=== PATIENT | female | born 1945 | race Caucasian/White ===

== ENCOUNTER 2020-08-29 16:34 | Inpatient (IN) ==
[2020-08-29 17:56] LABS: ABS Eosinophils 0.3 10^3/ul (0-0.6); ABS Lymphocytes 1.3 10^3/ul (1.0-4.8); ABS Monocytes 0.7 10^3/ul (0-0.8); ABS Neutrophils 7.2 10^3/ul (1.5-7.7); Eosinophil % 3.7 %; Hematocrit 38 % (35-47); Lymphocyte % 13.7 %; Mean Corpuscular HGB Conc 34 g/dL (31-36); Mean Corpuscular Hemoglobin 31 pg (27-31); Mean Corpuscular Volume 93 fL (80-97); Platelet Count 283 10^3/uL (150-450); Red Blood Count 4.14 10^6 /uL (3.70-4.87); Red Cell Distribution Width 13 % (10-15); White Blood Count 9.5 10^3/uL (3.5-10.8)
[2020-08-29 18:03] LABS: INR 0.98 (0.82-1.09)
[2020-08-29] MEDS ORDERED: Al Hydrox/Mg Hydrox/Simet LIQ 30 ML UDC PO PRN (18:07)
[2020-08-29 18:11] LABS: Albumin 4.7 g/dL (3.2-5.2); Albumin/Globulin Ratio 1.9 (1-3); BUN/Creatinine Ratio 30.1 (8-20); Calcium 9.8 mg/dL (8.6-10.3); EGFR African American 71.3 (>60); EGFR Non-African American 58.9 (>60); Globulin 2.5 g/dL (2-4); Potassium 3.8 mmol/L (3.5-5.0); Total Bilirubin 0.4 mg/dL (0.2-1.0); Total Protein 7.2 g/dL (6.4-8.9)
[2020-08-29] MEDS: Heparin 5000 UNITS/ML 1 mL VIAL SUBCUT SCH (22:06)
[2020-08-29] MEDS ORDERED: Lactated Ringers 1000 ml BAG 1,000 ML IV SCH (23:45)
[2020-08-30] MEDS ORDERED: Morphine 2 MG/ML SYRINGE IV ONE (02:51)
[2020-08-30] MEDS ORDERED: fentaNYL 100 mcg/2 ml 50 MCG/ML VIAL IV SLOW PU ONE (04:24)
[2020-08-30] MEDS: Heparin 5000 UNITS/ML 1 mL VIAL SUBCUT SCH ×3 (06:08→21:29)
[2020-08-30] MEDS: Cholecalciferol (VIT D3) 400 units TAB PO SCH (08:15)
[2020-08-30] MEDS ORDERED: Aspirin EC 325 mg TAB.EC PO SCH (09:00)
[2020-08-30 13:14] LABS: Vitamin D Total 25(OH) 29.8 ng/mL (20-50)
[2020-08-30] MEDS: Senna TAB 8.6 mg TAB PO SCH (21:30)
[2020-08-31] MEDS: NS 0.9% 1000 ml BAG 1,000 ML IV SCH ×2 (01:25→15:02)
[2020-08-31] MEDS: Heparin 5000 UNITS/ML 1 mL VIAL SUBCUT SCH ×2 (05:19→15:16)
[2020-08-31 08:36] LABS: ABS Eosinophils 0.3 10^3/ul (0-0.6); ABS Lymphocytes 1.7 10^3/ul (1.0-4.8); ABS Monocytes 0.7 10^3/ul (0-0.8); ABS Neutrophils 6.8 10^3/ul (1.5-7.7); Eosinophil % 2.7 %; Hematocrit 34 % (35-47); Hemoglobin 11.5 g/dL (12.0-16.0); Lymphocyte % 17.9 %; Mean Corpuscular HGB Conc 34 g/dL (31-36); Mean Corpuscular Hemoglobin 32 pg (27-31); Mean Corpuscular Volume 93 fL (80-97); Platelet Count 217 10^3/uL (150-450); Red Cell Distribution Width 13 % (10-15); White Blood Count 9.5 10^3/uL (3.5-10.8)
[2020-08-31 08:40] LABS: INR 1.1 (0.82-1.09)
[2020-08-31 08:51] LABS: Albumin 3.7 g/dL (3.2-5.2); Albumin/Globulin Ratio 1.4 (1-3); BUN/Creatinine Ratio 21.8 (8-20); Calcium 8.4 mg/dL (8.6-10.3); EGFR African American 87.4 (>60); EGFR Non-African American 72.2 (>60); Globulin 2.6 g/dL (2-4); Potassium 3.6 mmol/L (3.5-5.0); Total Bilirubin 0.6 mg/dL (0.2-1.0); Total Protein 6.3 g/dL (6.4-8.9)
[2020-08-31] MEDS: Cholecalciferol (VIT D3) 400 units TAB PO SCH (09:11)
[2020-08-31] MEDS ORDERED: Vancomycin 1,000 MG VIAL ONE (10:10)
[2020-08-31] MEDS ORDERED: Bupivacaine 0.5% SDV PF 30ML VIAL ONE ×3 (10:11→10:33)
[2020-08-31] MEDS ORDERED: Lidocaine 1% w EPI 1:200,000 SDV 30 ML VIAL ONE (10:11)
[2020-08-31] MEDS ORDERED: Midazolam 5 mg/5 ml VIAL 1 mg/ml 5 ml VIAL (5 mg) ONE (10:32)
[2020-08-31] MEDS ORDERED: fentaNYL 100 mcg/2 ml 50 MCG/ML VIAL ONE (10:32)
[2020-08-31] MEDS ORDERED: Propofol 10 MG/ML 20 ML BTL ONE (10:32)
[2020-08-31] MEDS ORDERED: ceFAZolin 2 GM PREMIX 2 GM/50 ML BAG ONE (10:33)
[2020-08-31] MEDS ORDERED: Sterile Water for Inj 10 ML ONE (10:40)
[2020-08-31] MEDS ORDERED: Ketamine HCL 50 mg/ml 10 ml VIAL (500 MG) ONE (10:40)
[2020-08-31] MEDS ORDERED: Ondansetron 4 mg VIAL 2 MG/ML 2 ml VIAL IV PRN (12:43)
[2020-08-31] MEDS ORDERED: fentaNYL 100 mcg/2 ml 50 MCG/ML VIAL IV PRN (12:43)
[2020-08-31] MEDS ORDERED: HYDROmorphone 1 MG/1 ML SYRINGE IV PRN (12:43)
[2020-08-31] MEDS ORDERED: Naloxone 0.4 mg VIAL 0.4 mg/ml 1 ml VIAL IV PRN (12:43)
[2020-08-31] MEDS ORDERED: Acetaminophen IV 1 GM/100ML 1,000 MG/100 ML VIAL IVPB PRN (12:43)
[2020-08-31] MEDS ORDERED: Polyethylene Glycol 3350 17 GM PACKET PO PRN (13:47)
[2020-08-31] MEDS ORDERED: Magnesium Hydroxide LIQ 30 ML UDC PO PRN (13:47)
[2020-08-31] MEDS ORDERED: Senna TAB 8.6 mg TAB PO PRN (13:47)
[2020-08-31 19:03] LABS: Hematocrit 30 % (35-47); Hemoglobin 10.3 g/dL (12.0-16.0)
[2020-08-31] MEDS: ceFAZolin 1 GM X 3 DOSES POST-OP Q8H (AddVan) IVPB SCH (19:16)
[2020-08-31] MEDS: Morphine 2 MG/ML SYRINGE IV PRN (20:57)
[2020-08-31] MEDS: Senna TAB 8.6 mg TAB PO SCH (20:59)
[2020-08-31] MEDS: Magnesium Hydroxide LIQ 30 ML UDC PO SCH (21:01)
[2020-09-01] MEDS: Morphine 2 MG/ML SYRINGE IV PRN (02:57)
[2020-09-01] MEDS: ceFAZolin 1 GM X 3 DOSES POST-OP Q8H (AddVan) IVPB SCH ×2 (02:57→12:16)
[2020-09-01] MEDS: NS 0.9% 1000 ml BAG 1,000 ML IV SCH ×2 (05:06→19:30)
[2020-09-01 05:49] LABS: Hematocrit 28 % (35-47); Hemoglobin 9.6 g/dL (12.0-16.0); Mean Platelet Volume 10.4 fL (7.4-10.4); Platelet Count 183 10^3/uL (150-450)
[2020-09-01 06:02] LABS: BUN/Creatinine Ratio 28.8 (8-20); EGFR African American 94.3 (>60); EGFR Non-African American 77.9 (>60); Potassium 3.7 mmol/L (3.5-5.0)
[2020-09-01] MEDS: Cholecalciferol (VIT D3) 400 units TAB PO SCH (09:01)
[2020-09-01] MEDS: Enoxaparin 40 MG/0.4 ML SYR SUBCUT SCH (09:03)
[2020-09-01] MEDS: Magnesium Hydroxide LIQ 30 ML UDC PO SCH ×2 (09:04→22:02)
[2020-09-01] MEDS: Senna TAB 8.6 mg TAB PO SCH (22:02)
[2020-09-02 05:15] LABS: Hematocrit 25 % (35-47); Hemoglobin 8.7 g/dL (12.0-16.0); Mean Platelet Volume 10.6 fL (7.4-10.4); Platelet Count 170 10^3/uL (150-450)
[2020-09-02 05:33] LABS: Calcium 8.3 mg/dL (8.6-10.3); EGFR African American 91.4 (>60); EGFR Non-African American 75.5 (>60); Potassium 3.9 mmol/L (3.5-5.0)
[2020-09-02] MEDS: Enoxaparin 40 MG/0.4 ML SYR SUBCUT SCH (08:50)
[2020-09-02] MEDS: Cholecalciferol (VIT D3) 400 units TAB PO SCH (08:51)
[2020-09-02] MEDS: Magnesium Hydroxide LIQ 30 ML UDC PO SCH ×2 (08:51→21:01)
[2020-09-02] MEDS: Senna TAB 8.6 mg TAB PO SCH (21:01)
[2020-09-03 05:56] LABS: ABS Eosinophils 0.3 10^3/ul (0-0.6); ABS Lymphocytes 1.2 10^3/ul (1.0-4.8); ABS Monocytes 0.9 10^3/ul (0-0.8); ABS Neutrophils 6.1 10^3/ul (1.5-7.7); Eosinophil % 3.7 %; Hematocrit 23 % (35-47); Hemoglobin 8.2 g/dL (12.0-16.0); Lymphocyte % 14.3 %; Mean Corpuscular HGB Conc 35 g/dL (31-36); Mean Corpuscular Hemoglobin 32 pg (27-31); Mean Corpuscular Volume 91 fL (80-97); Mean Platelet Volume 9.8 fL (7.4-10.4); Platelet Count 183 10^3/uL (150-450); Red Blood Count 2.56 10^6 /uL (3.70-4.87); Red Cell Distribution Width 13 % (10-15); White Blood Count 8.6 10^3/uL (3.5-10.8)
[2020-09-03 06:26] LABS: BUN/Creatinine Ratio 31.1 (8-20); EGFR Non-African American 95.9 (>60); Potassium 3.9 mmol/L (3.5-5.0)
[2020-09-03] MEDS: Cholecalciferol (VIT D3) 400 units TAB PO SCH (08:50)
[2020-09-03] MEDS: Magnesium Hydroxide LIQ 30 ML UDC PO SCH ×2 (08:51→21:39)
[2020-09-03] MEDS: Enoxaparin 40 MG/0.4 ML SYR SUBCUT SCH (08:52)
[2020-09-03] MEDS: Senna TAB 8.6 mg TAB PO SCH (21:39)
[2020-09-04 05:58] LABS: ABS Eosinophils 0.4 10^3/ul (0-0.6); ABS Lymphocytes 1.3 10^3/ul (1.0-4.8); ABS Monocytes 0.7 10^3/ul (0-0.8); ABS Neutrophils 4.7 10^3/ul (1.5-7.7); Eosinophil % 5.1 %; Hematocrit 24 % (35-47); Hemoglobin 8.2 g/dL (12.0-16.0); Lymphocyte % 17.9 %; Mean Corpuscular HGB Conc 35 g/dL (31-36); Mean Corpuscular Hemoglobin 32 pg (27-31); Mean Corpuscular Volume 91 fL (80-97); Mean Platelet Volume 10.4 fL (7.4-10.4); Platelet Count 223 10^3/uL (150-450); Red Blood Count 2.58 10^6 /uL (3.70-4.87); Red Cell Distribution Width 13 % (10-15); White Blood Count 7.2 10^3/uL (3.5-10.8)
[2020-09-04 06:15] LABS: Calcium 8.2 mg/dL (8.6-10.3); EGFR African American 111.8 (>60); EGFR Non-African American 92.4 (>60)
[2020-09-04 07:32] VITALS: BP 134/63
[2020-09-04] MEDS: Magnesium Hydroxide LIQ 30 ML UDC PO SCH (08:14)
[2020-09-04] MEDS: Enoxaparin 40 MG/0.4 ML SYR SUBCUT SCH (08:14)
[2020-09-04] MEDS: Cholecalciferol (VIT D3) 400 units TAB PO SCH (08:14)
== END 2020-09-04 08:35 | DRG 522 ==
LOC: ED 16:34 → SSU 18:07
PROVIDERS: ADMIT Internal Medicine; ATTEND Internal Medicine

== ENCOUNTER 2020-09-04 07:04 | Inpatient (IN) ==
[2020-09-04] MEDS ORDERED: Senna TAB 8.6 mg TAB PO PRN (11:19)
[2020-09-05] MEDS: Cholecalciferol (VIT D3) 400 units TAB PO SCH (07:39)
[2020-09-05] MEDS: Enoxaparin 40 MG/0.4 ML SYR SUBCUT SCH (07:40)
[2020-09-06] MEDS: Cholecalciferol (VIT D3) 400 units TAB PO SCH (08:42)
[2020-09-06] MEDS: Enoxaparin 40 MG/0.4 ML SYR SUBCUT SCH (08:44)
[2020-09-07 06:35] LABS: ABS Basophils 0.1 10^3/ul (0-0.2); ABS Eosinophils 0.4 10^3/ul (0-0.6); ABS Lymphocytes 1.6 10^3/ul (1.0-4.8); ABS Monocytes 0.8 10^3/ul (0-0.8); ABS Neutrophils 5.6 10^3/ul (1.5-7.7); Eosinophil % 4.4 %; Hematocrit 25 % (35-47); Hemoglobin 8.6 g/dL (12.0-16.0); Lymphocyte % 18.8 %; Mean Corpuscular HGB Conc 34 g/dL (31-36); Mean Corpuscular Hemoglobin 31 pg (27-31); Mean Corpuscular Volume 92 fL (80-97); Mean Platelet Volume 9.1 fL (7.4-10.4); Platelet Count 326 10^3/uL (150-450); Red Blood Count 2.75 10^6 /uL (3.70-4.87); Red Cell Distribution Width 13 % (10-15); White Blood Count 8.5 10^3/uL (3.5-10.8)
[2020-09-07 07:00] LABS: Albumin 3.1 g/dL (3.2-5.2); Albumin/Globulin Ratio 1.1 (1-3); BUN/Creatinine Ratio 18.6 (8-20); Calcium 8.7 mg/dL (8.6-10.3); EGFR Non-African American 81.8 (>60); Globulin 2.7 g/dL (2-4); Total Bilirubin 0.5 mg/dL (0.2-1.0); Total Protein 5.8 g/dL (6.4-8.9)
[2020-09-07] MEDS: Enoxaparin 40 MG/0.4 ML SYR SUBCUT SCH (09:01)
[2020-09-07] MEDS: Cholecalciferol (VIT D3) 400 units TAB PO SCH (09:01)
[2020-09-08 05:45] VITALS: BP 135/68
[2020-09-08] MEDS: Cholecalciferol (VIT D3) 400 units TAB PO SCH (10:07)
[2020-09-08] MEDS: Enoxaparin 40 MG/0.4 ML SYR SUBCUT SCH (10:10)
== END 2020-09-08 13:55 | disposition home or self-care (01) | DRG 561 ==
LOC: PMRU 08:36
PROVIDERS: ADMIT Physical Medicine & Rehabilitation; ATTEND Physical Medicine & Rehabilitation

== ENCOUNTER 2023-02-15 05:39 | Observation (INO) ==
[~2023-02-15 05:39] MED LIST: Naloxone 0.4 mg VIAL 0.4 mg/ml 1 ml VIAL IV PRN; Ondansetron 4 mg VIAL 2 MG/ML 2 ml VIAL IV PRN; fentaNYL 100 mcg/2 ml 50 MCG/ML VIAL IV PRN; oxyCODONE/Acetamin 5/325 mg TAB PO PRN
[2023-02-15] MEDS ORDERED: Chlorhexidine MOUTHWASH 0.12% 15 ML UDC ONE (05:40)
[2023-02-15] MEDS ORDERED: Buffered Lidocaine 1% SYRIN 1 ml INTRADERM ONE (06:00)
[2023-02-15] MEDS ORDERED: Lactated Ringers 1000 ml BAG 1,000 ML IV SCH ×2 (06:00→11:00)
[2023-02-15] MEDS ORDERED: ceFAZolin 2 GM in NS PREMIX 2 GM/100 ML BAG IVPB ONE (06:07)
[2023-02-15 06:24] LABS: Rapid COVID-19 Molecular Undetected (Undetected)
[2023-02-15] MEDS ORDERED: Lidocaine 2% PF 5 ML VIAL ONE (06:31)
[2023-02-15] MEDS ORDERED: Propofol 10 MG/ML 20 ML BTL ONE (06:32)
[2023-02-15] MEDS ORDERED: fentaNYL 100 mcg/2 ml 50 MCG/ML VIAL ONE (06:33)
[2023-02-15] MEDS ORDERED: Rocuronium 50 mg VIAL 10 mg/ml 5 ml VIAL (50 mg) ONE (06:33)
[2023-02-15] MEDS ORDERED: Gelfoam 12-7 ADSORBABL SPONGE ONE (06:54)
[2023-02-15] MEDS ORDERED: Thrombin 5,000 UNITS 1 APPLIC KIT - topical use - TOPICAL ONE (06:54)
[2023-02-15] MEDS ORDERED: ceFAZolin VIAL VIAL ONE (06:54)
[2023-02-15] MEDS ORDERED: Gelfoam Sponge SIZE 100 SPONGE ONE (06:54)
[2023-02-15] MEDS ORDERED: Lidocaine 1% w EPI 1:200,000 SDV 30 ML VIAL ONE (06:54)
[2023-02-15] MEDS ORDERED: Phenylephrine IV 10 MG/ML 1 ml VIAL ONE (07:54)
[2023-02-15] MEDS ORDERED: Ondansetron 4 mg VIAL 2 MG/ML 2 ml VIAL ONE (08:12)
[2023-02-15] MEDS ORDERED: Dexamethasone IV 4 MG/ML VIAL 1 ml VIAL ONE ×2 (08:12→08:13)
[2023-02-15] MEDS ORDERED: HYDROcodone/ACETAMIN 5/325 mg TAB PO PRN ×2 (10:04)
[2023-02-15] MEDS ORDERED: Senna TAB 8.6 mg TAB PO PRN (10:04)
[2023-02-15] MEDS ORDERED: Calcium Carb (TUMS) 500 mg CHEW TAB PO PRN (10:04)
[2023-02-15] MEDS ORDERED: Morphine 2 MG/ML SYRINGE IV PRN (10:04)
[2023-02-15] MEDS ORDERED: Ondansetron 4 mg VIAL 2 MG/ML 2 ml VIAL IV PRN (10:04)
[2023-02-15] MEDS ORDERED: Acetaminophen IV 1 GM/100ML 1,000 MG/100 ML BAG IV ONE (13:06)
[2023-02-16 10:28] VITALS: BP 115/67
== END 2023-02-16 10:47 | disposition home or self-care (01) ==
LOC: SSU 05:39 → OR 05:39
PROVIDERS: ADMIT Neurological Surgery; ATTEND Neurological Surgery